=== PATIENT | male | born 1955 | race Caucasian/White ===

== ENCOUNTER → 2017-01-21 | Outpatient (CLI) | payer OTHER ==
[~2017-01-21] MED LIST: ANTI INFLAM PO; ASPIRIN81 M2 PO; DICLOFENAC; HYCODAN60 ML 5MG/ PO; HYDROCODON-ACE1 EAC9 PO; IBUPROFEN PO; MED FOR ANXIETY PO; NO MEDICATIONS; NSAID; PHENERGAN PO; PREDNISONE5 MG; PROZAC PO; TUMS500 M1 PO; XANAX0.5 MG PO
--- NOTE | ~2017-01-21 | CR170 ---
[facility]. [facility] A Service of [facility] & [facility] RADIOLOGY TEXT RESULTS PATIENT: YOEL LORA LOCATION: [facility] : 59 UNIT #: [id number] AGE: [address]: Edilberto Winn MD SEX: M ORDER DR: [id number] [address] [address] [id number] O MR#: [id number] Acc #: [id number] NAME: YOEL LORA : 1955 SEX: M STUDY DATE/TIME: 01/21/2017 9:18 UNIT: [facility] ROOM: STUDY DESCRIPTION: CR Knee 2 Views Rt Attending Physician: Edilberto Winn M.D. Referring Physician: Edilberto Winn M.D. Ordering Physician: Edilberto Winn M.D. Primary Care Physician: Rajwinder Young M.D. MEDICAL IMAGING REPORT This report is preliminary unless electronic signature is present. EXAM Right knee 2 views 01/21/2017 INDICATIONS Osteoarthritis of the right knee in a 61-year-old male. TECHNIQUE 2 views of the right knee compared with 10/25/2014. COMPARISON No comparisons FINDINGS There is mild degenerative change related to joint space narrowing in the medial and lateral compartments. No acute fracture. The bones are osteopenic. No joint effusion. IMPRESSION 1. Mild degenerative change in the right knee. Dictated by... Tone Bella M.D. THIS IS AN ELECTRONICALLY VERIFIED REPORT Tone Bella M.D. at 01/22/2017 7:43 AM LAQUITA/any TD: 01/21/2017 20:03 JOB #: [id number] MEDICAL IMAGING REPORT
== END | disposition home or self-care (01) ==
LOC: SRAD 09:11
DX: M17.11 Unilateral primary osteoarthritis, right knee (principal)
CPT/HCPCS: 73560

== ENCOUNTER → 2017-02-18 | Outpatient (CLI) | payer OTHER ==
[2017-02-18 10:36] LABS: HEMATOCRIT 43.3 % (38.0-50.0); HEMOGLOBIN 14.1 gm/dL (13.0-16.0); MEAN CELL VOLUME 88.8 FL (83-96); MEAN CORPUSCULAR HGB CONC 32.7 g/dL (30-36); MEAN PLATELET VOLUME 8.3 FL (6.5-11.5); RED BLOOD COUNT 4.87 X10e (3.90-5.60); RED CELL DISTRIBUTION WIDTH 14.2 % (11.0-15.5); WHITE BLOOD COUNT 6.1 X10e3 (4.0-10.5)
[2017-02-18 10:37] LABS: URINE APPEARANCE CLEAR; URINE BILIRUBIN NEG (NEG); URINE BLOOD NEG (NEG); URINE COLOR YELLOW; URINE GLUCOSE NEG (NEG); URINE KETONE NEG (NEG); URINE LEUKOCYTE ESTERASE NEG (NEG); URINE NITRATE NEG (NEG); URINE PROTEIN NEG (NEG); URINE SPECIFIC GRAVITY 1.004 (1.003-1.035); URINE UROBILINOGEN 0.2 MG/DL (NEG)
[2017-02-18 10:43] LABS: URINE SOURCE CLEAN CATCH
[2017-02-18 11:02] LABS: BUN/CREATININE RATIO 15.55; CALCIUM SERUM 9.9 mg/dL (8.4-10.2); CREATININE SERUM 0.9 mg/dL (0.6-1.4); GLOM FILT RATE Estimated 93.2 mL/min (>60); POTASSIUM 4.6 mmol/L (3.5-5.1)
[2017-02-18 13:16] LABS: CULTURE INDICATED? NO
== END | disposition home or self-care (01) ==
LOC: CAMB 09:29
PROVIDERS: Orthopaedic Surgery
DX: Z01.812 Encounter for preprocedural laboratory examination (principal); M75.102 Unspecified rotator cuff tear or rupture of left shoulder, not specified as traumatic
CPT/HCPCS: 36415; 80048; 81003; 85027

== ENCOUNTER → 2017-02-21 | Day surgery (SDC) | payer OTHER ==
--- NOTE | ~2017-02-21 | OR ---
Unit #: [id number] #: [id number] Patient: YOEL LORA [id number] [address] [place], [place] [address] [id number] O MR#: [id number] NAME: YOEL LORA ROOM: Date of Procedure: 02/21/2017 Admission Date: 02/21/2017 Surgeon: Edilberto Winn M.D. : 1955 Attending Physician: Edilberto Winn M.D. Referring Physician: Edilberto Winn M.D. Primary Care Physician: Rajwinder Young M.D. 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 POSTOPERATIVE DIAGNOSES Impingement with rotator cuff tear, left shoulder with degenerative joint disease of the acromioclavicular joint, and degenerative biceps tendon. PROCEDURES PERFORMED 1. Arthroscopy, subacromial decompression, biceps tenodesis, mini open rotator cuff repair left shoulder. 2. Injection Depo-Medrol, left acromioclavicular joint. HISTORY AND FINDINGS The patient is a 61-year-old, who has been having progressively increasing pain in his left shoulder for the last year or two. He had MRI done approximately a year ago, which was suggestive of a cuff tear. The patient did not follow through with treatment and currently as he is having persistent symptoms, was seen by me and I advised rotator cuff repair. Procedure was explained including risks of anesthesia and complications of surgery like infection, neurovascular injury, stiffness, loss of fixation, need for further surgery have been explained and he voices understanding and wishes to proceed. DESCRIPTION OF PROCEDURE After induction of general anesthesia, the patient was placed in the beach chair position with all bony prominences adequately padded. A time-out was called. Operative site was confirmed. After infiltrating the shoulder joint with 1% Xylocaine with epi through a posterior portal, arthroscopy was performed. The superior labrum and the biceps tendon was checked revealed a type 1 SLAP lesion and have degenerative biceps tendon, which was seen up to the bicipital groove. Anterior labrum and the glenohumeral ligaments were found to be intact. There was some fraying of the anterior labrum. Inferior labrum and recess was normal. There was no loose body. Glenohumeral joint revealed grade 1 to 2 chondromalacic changes. Posterior labrum was intact. Then, the subscapularis was followed to its attachment, was found to be normal. The supraspinatus was avulsed off the tuberosity and full-thickness tear was identified extending up to the infraspinatus. The lateral portal was established and a shaver was introduced and the type 1 SLAP lesion was debrided to stable and considering the significant degenerative changes in the biceps tendon, it was decided to do a biceps tenotomy and tenodesis, so a FiberWire was Unit #: [id number] #: [id number] Patient: YOEL LORA taken on a Scorpion and the biceps tendon was tagged. Then, using arthroscopic scissors, biceps tenotomy was performed proximal to this region. Then, with the tenotomy, the shaver was used to trim the biceps anchor and shaved to a stable surface, and then the biceps anchor was brought through the incision laterally. At this point, the scope was withdrawn and introduced into the subacromial space and subacromial bursectomy was performed. The anterior acromion was not prominent to warrant an acromioplasty. The tear revealed to be approximately 2.5 to 3 cm long. It was decided to do a mini open repair, so the scope was withdrawn and the anterolateral incision was enlarged to approximately 3 cm. Incision deepened down. The deltoid fibers were split and the subacromial space was entered. Additional bursectomy was completed. Then, the cuff tear was identified. It appeared the size of the tear that needs two anchors, so two FiberTape anchors were placed in the rotator cuff and they were brought laterally, two Arthrex SwiveLock anchors 4.75 mm prior to which the greater tuberosity was prepped to cortical bleeding bone and the shoulder was thoroughly irrigated. The anterior cuff along with the biceps anchor was anchored to the SwiveLock anchor anteriorly. This helped tenodesis of the biceps tendon and the anterior cuff. The second FiberTape was brought separately and anchored to the greater tuberosity. Good repair of the rotator cuff was obtained. Then, the shoulder joint was thoroughly irrigated. 0 Vicryl was used to approximate the deltoid, 2-0 plain for the subcutaneous, and 4-0 nylon for the skin. Then, 40 mg of Depo-Medrol and 2 mL of 0.25% Marcaine was injected into the AC joint. Sterile compression dressing and a shoulder immobilizer was given. Blood loss was approximately 25 mL. The patient received preoperative antibiotics. Tolerated the procedure well and was transferred to the recovery room in satisfactory condition. POSTOPERATIVE INSTRUCTIONS 1. Ice packs to the left shoulder and range of motion to the wrist and elbow. 2. [place] 7.5 mg p.o. q.6 hours p.r.n. 3. He was given a followup appointment. Return to my office in one week. If any problems, to contact me. Dictated by... Arianna Valencia/gordo TD: 02/22/2017 06:03 JOB #: [id number] OPERATIVE REPORT Page 1 of 1 X Edilberto Winn MD X PROCEDURE OPERATIVE NOTE
== END | disposition home or self-care (01) ==
LOC: CSUR 07:56
DX: M75.102 Unspecified rotator cuff tear or rupture of left shoulder, not specified as traumatic (principal); M75.42 Impingement syndrome of left shoulder; M19.012 Primary osteoarthritis, left shoulder; K21.9 Gastro-esophageal reflux disease without esophagitis; Z90.49 Acquired absence of other specified parts of digestive tract; Z88.0 Allergy status to penicillin; Z79.891 Long term (current) use of opiate analgesic
CPT/HCPCS: C1713; J0171; J0690; J1030; J1100; J2250; J2405; J2795; J3010; J3370

== ENCOUNTER → 2017-05-14 | Outpatient (CLI) | payer OTHER ==
--- NOTE | ~2017-05-14 | CR141 ---
[facility]. [facility] A Service of [facility] & [facility] RADIOLOGY TEXT RESULTS PATIENT: YOEL LORA LOCATION: [facility] : 59 UNIT #: [id number] AGE: [address]: Edilberto Winn MD SEX: M ORDER DR: [id number] [address] [address] [id number] O MR#: [id number] Acc #: [id number] NAME: YOEL LORA : 1955 SEX: M STUDY DATE/TIME: 05/14/2017 8:38 UNIT: [facility] ROOM: STUDY DESCRIPTION: CR Hand Min 3 Views Lt Attending Physician: Edilberto Winn M.D. Referring Physician: Edilberto Winn M.D. Ordering Physician: Edilberto Winn M.D. Primary Care Physician: Rajwinder Yuong M.D. MEDICAL IMAGING REPORT This report is preliminary unless electronic signature is present. EXAM Left hand HISTORY Knots on the palm of the hand. Symptoms for the past 3 weeks with diminished dispute resolution specialist strength. Hand surgery February 2017. TECHNIQUE 3 views of the hand were obtained. FINDINGS Mild degenerative change is seen at the interphalangeal joints with joint space narrowing and small osteophytes. No erosions are noted. There is no evidence of fracture, bone destruction or radiodense foreign body. IMPRESSION Mild osteoarthritic changes at the interphalangeal joints otherwise negative. Dictated by... Dheeraj Soto M.D. THIS IS AN ELECTRONICALLY VERIFIED REPORT Dheeraj Soto M.D. at 05/15/2017 10:30 AM Kristine TD: 05/14/2017 16:02 JOB #: [id number] MEDICAL IMAGING REPORT Page 1 of 1
== END | disposition home or self-care (01) ==
LOC: SRAD 08:28
DX: R22.31 Localized swelling, mass and lump, right upper limb (principal)
CPT/HCPCS: 73130

== ENCOUNTER → 2017-06-26 | Outpatient (CLI) | payer OTHER ==
--- NOTE | ~2017-06-26 | MR70 ---
[facility] A Service of [facility] & [facility] RADIOLOGY TEXT RESULTS PATIENT: YOEL LORA LOCATION: [facility] : 59 UNIT #: [id number] AGE: [address]: Edilberto Winn MD SEX: M ORDER DR: [id number] [address] [address] [id number] O MR#: [id number] Acc #: [id number] NAME: YOEL LORA : 1955 SEX: M STUDY DATE/TIME: 06/26/2017 12:02 UNIT: [facility] ROOM: STUDY DESCRIPTION: MR Hand WWo Contrast Lt Attending Physician: Edilberto Winn M.D. Referring Physician: Edilberto Winn M.D. Ordering Physician: Edilberto Winn M.D. Primary Care Physician: Rajwinder Young M.D. MRI CENTER REPORT This report is preliminary unless electronic signature is present. EXAM MRI of the left hand with and without contrast HISTORY 61-year-old male complains of 2 areas of palpable knots or skin thickening along the palmar aspect of the hand. Tender to palpation, loss of oenologist and dexterous symptoms for 2-3 months. FINDINGS Multiplanar, multiecho imaging was performed of the left hand utilizing a high-field magnet and dedicated protocol. Sagittal and axial T1-weighted images were performed following IV gadolinium. Mild arthritic changes seen at the first CMC joint with developing marginal osteophyte. No significant marrow edema. No significant arthropathy of the metacarpophalangeal joints or wrist. There is edema along the flexor hallucis longus tendon at the level of the first MCP joint, and this enhances postcontrast and suggests a component of tenosynovitis. In the areas marked by the gel capsule, there is minimal induration of the overlying soft tissues but no focal mass lesions identified. The flexor tendons appear normal. The intrinsic musculature appears normal. IMPRESSION 1. Minimal induration of the soft tissues overlying the second and third metacarpal heads corresponding to the area of clinical concern but no discrete mass lesions identified. No abnormal enhancement postcontrast. 2. Mild arthritic changes first CMC joint. 3. Suspected mild focal tenosynovitis flexor hallucis tendon. Dictated by... Anita Hickey M.D. [facility] A Service of [facility] RADIOLOGY TEXT RESULTS PATIENT: YOEL LORA LOCATION: [facility] : 59 UNIT #: [id number] AGE: [address]: Edilberto Winn MD SEX: M ORDER DR: THIS IS AN ELECTRONICALLY VERIFIED REPORT Anita Hickey M.D. at 06/27/2017 7:18 AM NIGEL/checo TD: 06/26/2017 20:05 JOB #: [id number] MRI CENTER REPORT Page 1 of 1
== END | disposition home or self-care (01) ==
LOC: SMRI 11:17
DX: R22.32 Localized swelling, mass and lump, left upper limb (principal); M19.042 Primary osteoarthritis, left hand
CPT/HCPCS: 73220; A9581